=== PATIENT | female | born 2000 | race African-American/Black ===

== ENCOUNTER 2023-06-20 19:32 | Emergency (ER) | payer SELFPAY ==
[~2023-06-20] VITALS: Ht 180.3 cm; Wt 107.0 kg
[2023-06-20 20:29] VITALS: O2SAT 100
[2023-06-21] MEDS: HYDROCODONE/ACETAMINOPHEN 5/325MG TABLET PO ONE (00:33)
[2023-06-21] MEDS: KETOROLAC 30MG/ML VIAL IM ONE (00:38)
[2023-06-21] MEDS ORDERED: HYDR-4001 MT ×2 (02:25→02:35)
[2023-06-21] MEDS ORDERED: IBUP-2030 MT (02:25)
[2023-06-21 02:51] VITALS: BP 125/72; PULSE 84; RESP 20; TEMP 98.6
== END 2023-06-21 03:00 | disposition home or self-care (01) ==
LOC: ER 19:32
DX: S82.142A Displaced bicondylar fracture of left tibia, initial encounter for closed fracture (principal); W18.39XA Other fall on same level, initial encounter; Y93.89 Activity, other specified; Y92.89 Other specified places as the place of occurrence of the external cause; Y99.8 Other external cause status
CPT/HCPCS: 81025; 73562; 99285; 73700; 29505; 96372; J1885; Z7610 ×2